=== PATIENT | female | born 1985 | race Two or more races ===

== ENCOUNTER 2018-02-28 11:23 | Emergency (ER) | payer OTHER ==
[2018-02-28 11:44] VITALS: BP 109/49; PULSE 75; TEMP 98.3; BMI 21.7
[2018-02-28] MEDS ORDERED: SODIUM CHLORIDE 1,000 ML IV STA (12:40)
[2018-02-28] MEDS ORDERED: ACETAMINOPHEN 1000 MG/100 ML VIAL (NON FORMULARY) IVPB ONE (12:40)
[2018-02-28] MEDS ORDERED: METOCLOPRAMIDE HCL INJECTION 10 MG/2 ML VIAL IVPUSH ONE (12:40)
[2018-02-28] MEDS ORDERED: FAMOTIDINE 20 MG/50 ML IVPB 20 MG/50 ML MG IVPB ONE ×2 (12:40→13:02)
--- NOTE | 2018-02-28 12:49 | PDOC ---
History of Present Illness - General History Source: Patient Exam Limitations: No Limitations <Jorge Luis Beard - Last Filed: 02/28/18 14:59> - History of Present Illness Initial Comments: The patient is a 32 year old female (, currently ~10 weeks ), with no significant PMH, who presents to the emergency department today complaining of nausea and vomiting for 2 days. She states she has thrown up over 30 times. Patient reports associated intermittent superpubic discomfort with vomiting. Patient reports her LMP was over 2.5 months ago. She denies history of hyperemesis gravidarum. The patient denies chest pain, shortness of breath, headache and dizziness. Denies fever, chills, diarrhea and constipation. Denies vaginal bleeding, dysuria, frequency, urgency and hematuria. Allergies: NKA Past surgical history: None reported Social history: No reported 02/28/18 12:55 <Vee Turner - Last Filed: 02/28/18 15:14> - General Chief Complaint: Pain, Acute Stated Complaint: ABD PAIN Time Seen by Provider: 02/28/18 11:56 Past History - Past Medical History COPD: No - Reproductive History Is Patient Now?: Yes - Immunization History Immunization Up to Date: No - Suicide/Smoking/Psychosocial Hx Smoking History: Never smoked Hx Alcohol Use: No Drug/Substance Use Hx: No <Jorge Luis Beard - Last Filed: 02/28/18 14:59> <Vee Turner - Last Filed: 02/28/18 15:14> - Past Medical History Allergies/Adverse Reactions: Allergies Allergy/AdvReac Type Severity Reaction Status Date / Time No Known Allergies Allergy Verified 02/28/18 11:40 Home Medications: Ambulatory Orders Acetaminophen [Tylenol] 650 mg PO Q4H PRN #20 tablet 02/28/18 Famotidine [Pepcid] 20 mg PO BID #20 tablet 02/28/18 Ferrous Sulfate [Feosol] 325 mg PO 02/28/18 Metoclopramide HCl [Reglan] 10 mg PO Q6H PRN #20 tablet 02/28/18 Prenat 115/Iron Fum/Folic/Dss [ 19 Tablet] 1 each PO 02/28/18 Review of Systems - Review of Systems Comments:: GENERAL/CONSTITUTIONAL: No fever or chills. No weakness. HEAD, EYES, EARS, NOSE AND THROAT: No change in vision. No ear pain or discharge. No sore throat. CARDIOVASCULAR: No chest pain or shortness of breath. RESPIRATORY: No cough, wheezing, or hemoptysis. GASTROINTESTINAL: +Nausea. +Vomiting. No diarrhea or constipation. GENITOURINARY: No dysuria, frequency, or change in urination. MUSCULOSKELETAL: +Superpubic discomfort. No joint or muscle swelling. No neck or back pain. SKIN: No rash NEUROLOGIC: No headache, vertigo, loss of consciousness, or change in strength/ sensation. ENDOCRINE: No increased thirst. No abnormal weight change. HEMATOLOGIC/LYMPHATIC: No anemia, easy bleeding, or history of blood clots. ALLERGIC/IMMUNOLOGIC: No hives or skin allergy. 02/28/18 12:56 <Vee Turner - Last Filed: 02/28/18 15:14> *Physical Exam - Vital Signs Last Vital Signs Temp Pulse Resp BP Pulse Ox 98.3 F 75 16 109/49 L 98 02/28/18 11:40 02/28/18 11:40 02/28/18 11:40 02/28/18 11:40 02/28/18 11:40 <Jorge Luis Beard - Last Filed: 02/28/18 14:59> - Vital Signs Last Vital Signs Temp Pulse Resp BP Pulse Ox 98.3 F 75 16 109/49 L 98 02/28/18 11:40 02/28/18 11:40 02/28/18 11:40 02/28/18 11:40 02/28/18 11:40 - Physical Exam Comments: GENERAL: Awake, alert, and fully oriented, in no acute distress HEAD: No signs of trauma EYES: PERRLA, EOMI, sclera anicteric, conjunctiva clear ENT: Auricles normal inspection, hearing grossly normal, nares patent, oropharynx clear without exudates. Moist mucosa NECK: Normal ROM, supple, no lymphadenopathy, JVD, or masses LUNGS: Breath sounds equal, clear to auscultation bilaterally. No wheezes, and no crackles HEART: Regular rate and rhythm, normal S1 and S2, no murmurs, rubs or gallops ABDOMEN: +Mild suprapubic tenderness to palpation. Soft, normoactive bowel sounds. No guarding, no rebound. No masses GENITOURINARY: No lesions, no drainage, no bleeding. No CMT, no adnexal tenderness. Cervical OS closed, no blood. EXTREMITIES: Normal range of motion, no edema. No clubbing or cyanosis. No cords, erythema, or tenderness NEUROLOGICAL: Cranial nerves II through XII grossly intact. Normal speech, normal gait SKIN: Warm, Dry, normal turgor, no rashes or lesions noted. 02/28/18 12:57 <Vee Turner - Last Filed: 02/28/18 15:14> Moderate Sedation - Procedure Monitoring Vital Signs: Procedure Monitoring Vital Signs Temperature 98.3 F 02/28/18 11:40 Pulse Rate 75 02/28/18 11:40 Respiratory Rate 16 02/28/18 11:40 Blood Pressure 109/49 L 02/28/18 11:40 O2 Sat by Pulse Oximetry (%) 98 02/28/18 11:40 <Jorge Luis Beard - Last Filed: 02/28/18 14:59> - Procedure Monitoring Vital Signs: Procedure Monitoring Vital Signs Temperature 98.3 F 02/28/18 11:40 Pulse Rate 75 02/28/18 11:40 Respiratory Rate 16 02/28/18 11:40 Blood Pressure 109/49 L 02/28/18 11:40 O2 Sat by Pulse Oximetry (%) 98 02/28/18 11:40 <Vee Turner - Last Filed: 02/28/18 15:14> ED Treatment Course - LABORATORY CBC & Chemistry Diagram: 02/28/18 12:40 02/28/18 12:40 - RADIOLOGY Radiology Studies Ordered: Category Date Time Status TRANSVAGINAL US PREG [US] Stat Ultrasound 02/28/18 12:34 Ordered <Jorge Luis Beard - Last Filed: 02/28/18 14:59> - LABORATORY CBC & Chemistry Diagram: 02/28/18 12:40 02/28/18 12:40 - RADIOLOGY Radiograph Interpretation: EXAM#: TYPE/EXAM: RESULT: [id number] US/ <14WKS IMPRESSION: Single, live intrauterine of 10 weeks gestational age. Reported By: Jeffry Medina MD 02/28/18 14:53 02/28/18 15:13 <Vee Turner - Last Filed: 02/28/18 15:14> Medical Decision Making - Medical Decision Making 02/28/18 12:46 A portion of this note was documented by scribe services under my direction. I have reviewed the details of the note, within reason, and agree with the documentation with the following case summary and management plan written by me. Patient treated in the ED. Nursing notes are reviewed and incorporated into the medical decision-making. Vital signs reviewed. Peripheral IV access obtained by the nurse, laboratory studies are drawn and sent, reviewed and interpreted by myself. Vital Signs Temp Pulse Resp BP Pulse Ox 98.3 F 75 16 109/49 L 98 02/28/18 11:40 02/28/18 11:40 02/28/18 11:40 02/28/18 11:40 02/28/18 11:40 32-year-old female patient no medical history, , last menstrual period approximately mid-November, approximately 10 weeks presents with nausea and vomiting since yesterday. Reports some intermittent suprapubic discomfort with vomiting but denies dysuria or vaginal bleeding. Denies fevers or chills. Reported vomiting over 30 times. Denies prior history of hyperemesis gravidarum. I do suspect patient may have elements of hypertensive gravidarum. Patient has not had an ultrasound yet. Patient has some very minimal suprapubic tenderness to palpation and normal pelvic exam. However, we'll rule out ectopic friends. Obtain transvaginal ultrasound. Labs, urinalysis. Treat symptoms and give IV fluids and reassess. 02/28/18 14:59 CBC, BMP 02/28/18 12:40 02/28/18 12:40 CMP Sodium 136 mmol/L (136-145) 02/28/18 12:40 Potassium 3.8 mmol/L (3.5-5.1) 02/28/18 12:40 Chloride 103 mmol/L (98-107) 02/28/18 12:40 Carbon Dioxide 24 mmol/L (21-32) 02/28/18 12:40 Anion Gap 9 MMOL/L (8-16) 02/28/18 12:40 BUN 12 mg/dL (7-18) 02/28/18 12:40 Creatinine 0.5 mg/dL (0.55-1.3) L 02/28/18 12:40 Creat Clearance w eGFR > 60 (>60) 02/28/18 12:40 Random Glucose 76 mg/dL (74-106) 02/28/18 12:40 Calcium 8.9 mg/dL (8.5-10.1) 02/28/18 12:40 Total Bilirubin 0.4 mg/dL (0.2-1) 02/28/18 12:40 AST 14 U/L (15-37) L 02/28/18 12:40 ALT 17 U/L (13-61) 02/28/18 12:40 Alkaline Phosphatase 48 U/L (45-117) 02/28/18 12:40 Total Protein 7.2 g/dl (6.4-8.2) 02/28/18 12:40 Albumin 3.9 g/dl (3.4-5.0) 02/28/18 12:40 Beta HCG, Quant 650642.6 mIU/ml 02/28/18 12:40 Urine Test Results Urine Color Yellow 02/28/18 12:45 Urine Appearance Clear 02/28/18 12:45 Urine pH 6.0 (5.0-8.0) 02/28/18 12:45 Ur Specific [place] 1.023 (1.010-1.035) 02/28/18 12:45 Urine Protein Negative (NEGATIVE) 02/28/18 12:45 Urine Glucose (UA) Negative (NEGATIVE) 02/28/18 12:45 Urine Ketones 2+ (NEGATIVE) H 02/28/18 12:45 Urine Blood Negative (NEGATIVE) 02/28/18 12:45 Urine Nitrite Negative (NEGATIVE) 02/28/18 12:45 Urine Bilirubin Negative (<2.0 mg/dL) 02/28/18 12:45 Ur Leukocyte Esterase Negative (NEGATIVE) 02/28/18 12:45 Ultrasound shows IUP HR 171, small left ovarian cyst. Pt reports feeling significantly better. 02/28/18 14:59 Blood type O positive. Discharge diagnosis: hyperemesis gravidarum. Pt has follow up with OB tomorrow. I discussed the physical exam findings, ancillary test results and final diagnoses with the patient. I answered all of the patient's questions. The patient was satisfied with the care received and felt comfortable with the discharge plan and treatment plan. The patient will call their primary care physician within 24 hours to arrange follow-up and will return to the Emergency Department with any new, persistant or worsening symptoms. <Jorge Luis Beard - Last Filed: 02/28/18 14:59> *DC/Admit/Observation/Transfer - Discharge Dispostion Decision to Admit order: No <Jorge Luis Beard - Last Filed: 02/28/18 14:59> - Attestations Scribe Attestion: 02/28/18 12:58 Documentation prepared by TORI Rae, acting as medical insurance claims processor for Jorge Luis Beard MD. <Vee Turner - Last Filed: 02/28/18 15:14> Diagnosis at time of Disposition: Hyperemesis gravidarum - Discharge Dispostion Disposition: HOME Condition at time of disposition: Improved - Prescriptions Prescriptions: Acetaminophen [Tylenol] 650 mg PO Q4H PRN #20 tablet PRN Reason: Pain Famotidine [Pepcid] 20 mg PO BID #20 tablet Metoclopramide HCl [Reglan] 10 mg PO Q6H PRN #20 tablet PRN Reason: Nausea - Referrals Referrals: Laura Jacob MD [Primary Care Provider] - - Patient Instructions Printed Discharge Instructions: DI for Hyperemesis Gravidarum Additional Instructions: The ultrasound of your fetus is reassuring. Please take the medications as prescribed as needed for symptoms control. Drink plenty of fluid and rest. Follow up with your doctor.
[2018-02-28 12:53] LABS: BASO % 0.6 % (0-2.0); EOS % 0.2 % (0-4.5); HEMATOCRIT 40.8 % (32.4-45.2); HEMOGLOBIN 14.6 GM/dL (10.7-15.3); MCH 34.6 pg (25.7-33.7); MCHC 35.8 g/dl (32.0-36.0); MEAN CELL VOLUME 96.7 fl (80-96); MEAN PLT VOLUME 7.5 fl (7.5-11.1); MONO % 6.2 % (3.8-10.2); PLATELET COUNT 323 K/MM3 (134-434); RBC 4.22 M/mm3 (3.60-5.2); RDW 12.5 % (11.6-15.6); WHITE BLOOD COUNT 10.7 K/mm3 (4.0-10.0)
[2018-02-28] MEDS ORDERED: METOCLOPRAMIDE HCL INJECTION 10 MG/2 ML VIAL ONE (13:01)
[2018-02-28] MEDS ORDERED: ACETAMINOPHEN INJECTION 100 ML IVPB ONE (13:02)
[2018-02-28 13:41] LABS: ALBUMIN 3.9 g/dl (3.4-5.0); ALK PHOS 48 U/L (45-117); ANION GAP 9 MMOL/L (8-16); BILIRUBIN,TOTAL 0.4 mg/dL (0.2-1); BLOOD UREA NITROGEN 12 mg/dL (7-18); CALCIUM 8.9 mg/dL (8.5-10.1); CHLORIDE 103 mmol/L (98-107); CO2 24 mmol/L (21-32); CREATININE 0.5 mg/dL (0.55-1.3); GLUCOSE,RANDOM 76 mg/dL (74-106); POTASSIUM 3.8 mmol/L (3.5-5.1); SGOT/AST 14 U/L (15-37); SGPT/ALT 17 U/L (13-61); SODIUM 136 mmol/L (136-145); TOT PROT 7.2 g/dl (6.4-8.2)
[2018-02-28 13:42] LABS: URINE APPEARANCE CLEAR; URINE BILIRUBIN NEGATIVE (<2.0 mg/dL); URINE COLOR YELLOW; URINE GLUCOSE (UA) NEGATIVE (NEGATIVE); URINE KETONE 2+ (NEGATIVE); URINE LEUK ESTERASE NEGATIVE (NEGATIVE); URINE NITRITE NEGATIVE (NEGATIVE); URINE PROTEIN NEGATIVE (NEGATIVE); URINE UROBILINOGEN NEGATIVE mg/dL (0.2-1.0)
== END 2018-02-28 15:12 | disposition home or self-care (01) ==
LOC: JER 11:23
PROC: 3E033NZ Introduction of Analgesics, Hypnotics, Sedatives into Peripheral Vein, Percutaneous Approach (ICD-10-PCS; principal; 2018-02-28)
PROC: 3E033GC Introduction of Other Therapeutic Substance into Peripheral Vein, Percutaneous Approach (ICD-10-PCS; 2018-02-28)
PROC: 3E0337Z Introduction of Electrolytic and Water Balance Substance into Peripheral Vein, Percutaneous Approach (ICD-10-PCS; 2018-02-28)
DX: O26.891 Other specified pregnancy related conditions, first trimester (principal); Z3A.10 10 weeks gestation of pregnancy; O21.0 Mild hyperemesis gravidarum
CPT/HCPCS: 36415; 76801-TC; 80053; 81003; 84702; 85025; 86850; 86900; 86901; 87086; 99283-25; J0131; J7030

== ENCOUNTER 2018-09-24 17:25 | Inpatient (IN) | payer OTHER ==
[2018-09-24] MEDS ORDERED: AMPICILLIN SODIUM 2 GM VIAL ONE (17:47)
[2018-09-24] MEDS ORDERED: AMPICILLIN - 2 GM in SODIUM CHLORIDE 100 ML IVPB ONE (17:50)
[2018-09-24 18:03] VITALS: BMI 24.7
[2018-09-24] MEDS ORDERED: DEXTROSE 5%-LACTATED RINGERS 1,000 ML IV SCH (18:15)
[2018-09-24 18:45] LABS: BASO % 0.5 % (0-2.0); EOS % 0.3 % (0-4.5); HEMATOCRIT 37.5 % (32.4-45.2); HEMOGLOBIN 12.9 GM/dL (10.7-15.3); LYMPH % 13.1 % (8-40); MCH 33.1 pg (25.7-33.7); MCHC 34.5 g/dl (32.0-36.0); MEAN CELL VOLUME 95.9 fl (80-96); MEAN PLT VOLUME 7.7 fl (7.5-11.1); MONO % 7.8 % (3.8-10.2); NEUT % 78.3 % (42.8-82.8); PLATELET COUNT 333 K/MM3 (134-434); RBC 3.91 M/mm3 (3.60-5.2); RDW 14.9 % (11.6-15.6); WHITE BLOOD COUNT 9.2 K/mm3 (4.0-10.0)
[2018-09-24 18:55] LABS: INR 0.88 (0.83-1.09); PROTHROMBIN TIME (PATIENT) 10.4 SEC (9.7-13.0)
[2018-09-24] MEDS ORDERED: PROMETHAZINE HCL 25 MG/1 ML VIAL IVPUSH ONE (18:55)
[2018-09-24] MEDS ORDERED: BUTORPHANOL TARTRATE 1 MG/ML VIAL IVPUSH ONE (18:55)
[2018-09-24 18:57] LABS: ACTIVATED PTT 29.5 SECONDS (25.2-36.5)
[2018-09-24] MEDS ORDERED: PROMETHAZINE HCL 25 MG/1 ML VIAL ONE (19:01)
[2018-09-24] MEDS ORDERED: BUTORPHANOL TARTRATE 1 MG/ML VIAL ONE ×2 (19:01)
--- NOTE | 2018-09-24 19:02 | HP ---
Past Medical History - Primary Care Physician PCP:: Fredrick Gandara - Admission Chief Complaint: 39 weeks, previous c/s , labor ,for History of Present Illness: 33 yo f with one previous c/s and 2 requesting VBAV , cx 6 cm 80 vx -1 mi, fhr cat 1, regular contraction History Source: Patient Limitations to Obtaining History: No Limitations - Past Medical History ...: 4 ...Para: 3 ...Term: 3 ...EDC by Nalini: 09/30/18 Heme/Onc: Yes: Anemia - Past Surgical History Past Surgical History: Yes: Hx Myomectomy: No Hx Transabdominal Cerclage: No - Smoking History Smoking history: Never smoked Have you smoked in the past 12 months: No - Alcohol/Substance Use Hx Alcohol Use: No - Social History Usual Living Arrangement: Yes: With Spouse History of Recent Travel: No Home Medications - Allergies Allergies/Adverse Reactions: Allergies Allergy/AdvReac Type Severity Reaction Status Date / Time No Known Allergies Allergy Verified 09/24/18 18:08 - Home Medications Home Medications: Ambulatory Orders Acetaminophen [Tylenol] 650 mg PO Q4H PRN #20 tablet 02/28/18 Famotidine [Pepcid] 20 mg PO BID #20 tablet 02/28/18 Ferrous Sulfate [Feosol] 325 mg PO 02/28/18 Metoclopramide HCl [Reglan] 10 mg PO Q6H PRN #20 tablet 02/28/18 Prenat 115/Iron Fum/Folic/Dss [ 19 Tablet] 1 each PO DAILY 02/28/18 Review of Systems - Review of Systems Constitutional: reports: No Symptoms Eyes: reports: No Symptoms HENT: reports: No Symptoms Neck: reports: No Symptoms Cardiovascular: reports: No Symptoms Respiratory: reports: No Symptoms Gastrointestinal: reports: No Symptoms Genitourinary: reports: No Symptoms Breasts: reports: No Symptoms Reported Musculoskeletal: reports: No Symptoms Integumentary: reports: No Symptoms Neurological: reports: No Symptoms Endocrine: reports: No Symptoms Hematology/Lymphatic: reports: No Symptoms Psychiatric: reports: No Symptoms Physical Exam - Maternity Vital Signs: Vital Signs Temperature 98.5 F 09/24/18 17:56 Pulse Rate 85 09/24/18 17:56 Respiratory Rate 18 09/24/18 17:56 Blood Pressure 132/81 09/24/18 17:56 O2 Sat by Pulse Oximetry (%) Constitutional: Yes: Well Nourished, No Distress, Calm Eyes: Yes: WNL, Conjunctiva Clear, EOM Intact HENT: Yes: WNL, Atraumatic, Normocephalic Neck: Yes: WNL, Supple, Trachea Midline Cardiovascular: Yes: WNL, Regular Rate and Rhythm Breast(s): Yes: WNL - Abdominal Exam/OB Fundal Height: 38 Number of Fetuses: Single Presentation: Vertex Contractions: Yes Regularity: Regular Monitor Mode: External Heart Rate Location: [facility] Category: I Accelerations: Uniform - Vaginal Exam/OB Vaginal Bleediing: No Speculum Exam: No Dilatation (cm): 6 Effacement (%): 100 Amniotic Membrane Status: Bulging Presentation: Vertex/Position Station: -1 - Physical Exam Musculoskeletal: Yes: WNL Extremities: Yes: WNL Edema: Yes Edema: LLE: Trace, RLE: Trace ...Motor Strength: WNL Psychiatric: Yes: WNL Hemorrhage Risk Assessment - Risk Factors Medium Risk Factors: Yes: Prior , uterine surgery,or multiple laparotomies Risk Score: 1 Risk Level: Medium Risk Problem List - Problems (1) with 39 completed weeks gestation Code(s): Z3A.39 - 39 WEEKS GESTATION OF (2) Labor established Code(s): ZWO6537 - (3) Previous section complicating Code(s): O34.219 - MATERNAL CARE FOR UNSP TYPE SCAR FROM PREVIOUS DEL Assessment/Plan plan admit, fhm risks of discussed for pain management
--- NOTE | 2018-09-24 19:04 | PN ---
Progress Note (short form) - Note Progress Note: cx 6 cm 100 vx -=1 , arom, light mec stained af, fhr cat 1, regular contraction Problem List - Problems (1) with 39 completed weeks gestation Code(s): Z3A.39 - 39 WEEKS GESTATION OF (2) Labor established Code(s): QPG5249 - (3) Previous section complicating Code(s): O34.219 - MATERNAL CARE FOR UNSP TYPE SCAR FROM PREVIOUS DEL
[2018-09-24 19:05] LABS: BLOOD UREA NITROGEN 11.4 mg/dL (7-18); CALCIUM 8.7 mg/dL (8.5-10.1); CREATININE 0.5 mg/dL (0.55-1.3); POTASSIUM 3.9 mmol/L (3.5-5.1)
[2018-09-24 20:18] LABS: COCAINE, UR NEGATIVE ng/ml (CUTOFF=300); METHADONE, UR NEGATIVE ng/ml (CUTOFF=300); OPIATES, URI NEGATIVE ng/ml (CUTOFF=300); PHENCYCLIDINE,URINE NEGATIVE ng/ml (CUTOFF=25); URINE AMPHETAMINES NEGATIVE ng/ml (CUTOFF=500); URINE BARBITURATES NEGATIVE ng/ml (CUTOFF=200); URINE BENZODIAZEPINES NEGATIVE ng/ml (CUTOFF=200)
[2018-09-24] MEDS ORDERED: OXYTOCIN 20 UNITS in 0.9% NS 20 UNIT/1,000 ML INFUS.BAG IV ONE (20:46)
--- NOTE | 2018-09-24 21:01 | PN ---
Progress Note (short form) - Note Progress Note: 9cm, 100 vx 0 mr, fhr cat 1, irregular contraction Problem List - Problems (1) with 39 completed weeks gestation Code(s): Z3A.39 - 39 WEEKS GESTATION OF (2) Labor established Code(s): QPC1239 - (3) Previous section complicating Code(s): O34.219 - MATERNAL CARE FOR UNSP TYPE SCAR FROM PREVIOUS DEL
[2018-09-24] MEDS ORDERED: OXYTOCIN 30 UNITS in 0.9% NS 30 UNIT/500 ML INFUS.BAG IVPB ONE (21:28)
[2018-09-24] MEDS ORDERED: BISACODYL 10 MG SUPP.RECT RC PRN (22:46)
[2018-09-24] MEDS ORDERED: WITCH HAZEL 50% (TUCKS) 40 PAD/JAR PAD TP PRN (22:46)
[2018-09-24] MEDS ORDERED: BENZOCAINE 28 GM HEMORRHOIDAL OINTMENT TP PRN (22:46)
[2018-09-24] MEDS ORDERED: BENZOCAINE 20% 57 GM BOTTLE TP PRN (22:46)
[2018-09-24] MEDS ORDERED: METHYLERGONOVINE MALEATE 0.2 MG/1 ML AMP IM PRN (22:46)
[2018-09-24] MEDS ORDERED: OXYTOCIN 20 UNITS in 0.9% NS 20 UNIT/1,000 ML INFUS.BAG IV SCH (23:00)
[2018-09-24] MEDS ORDERED: D5W-LR W/ 20 UNITS OXYTOCIN 20 UNIT/1,000 ML INFUS.BAG IV SCH (23:00)
--- NOTE | 2018-09-24 23:14 | PN ---
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 - 1 Minute Total Score: 9 5 Minutes Total Score: 9 - [place] Feeding Plan Initial Plan: Elected not to breastfeed exclusively throughout hospitalization
[2018-09-25] MEDS ORDERED: IBUPROFEN 600 MG TABLET (FP) PO ONE (00:08)
[2018-09-25] MEDS ORDERED: ACETAMINOPHEN 325 MG TABLET (FP) ONE (00:08)
[2018-09-25] MEDS: ACETAMINOPHEN 325 MG TABLET (FP) PO PRN ×3 (00:10→18:35)
[2018-09-25] MEDS: IBUPROFEN 600 MG TABLET (FP) PO PRN ×3 (00:10→18:36)
[2018-09-25] MEDS: AMPICILLIN - 1 GM in SODIUM CHLORIDE 100 ML IVPB SCH ×2 (04:51→05:54)
--- NOTE | 2018-09-25 06:31 | PN ---
Post Progress Note - Subjective Subjective: doing well, no issues Type of Delivery: Vital Signs: Vital Signs Temperature 97.8 F 09/25/18 05:43 Pulse Rate 62 09/25/18 05:43 Respiratory Rate 20 09/25/18 05:43 Blood Pressure 124/72 09/25/18 05:43 O2 Sat by Pulse Oximetry (%) 100 09/25/18 00:00 Breast Exam: Yes: Soft Uterus: Yes: Fundus Firm Abdomen/GI: Yes: Abdomen soft Lochia: Yes: Rubra Lochia, amount: Small Extremities: Yes: Calves non-tender Perineum: Yes: Intact Activity: Ambulating - Labs Labs: CBC WBC 9.2 K/mm3 (4.0-10.0) 09/24/18 18:20 RBC 3.91 M/mm3 (3.60-5.2) 09/24/18 18:20 Hgb 12.9 GM/dL (10.7-15.3) 09/24/18 18:20 Hct 37.5 % (32.4-45.2) 09/24/18 18:20 MCV 95.9 fl (80-96) 09/24/18 18:20 MCH 33.1 pg (25.7-33.7) 09/24/18 18:20 MCHC 34.5 g/dl (32.0-36.0) 09/24/18 18:20 RDW 14.9 % (11.6-15.6) D 09/24/18 18:20 Plt Count 333 K/MM3 (134-434) 09/24/18 18:20 MPV 7.7 fl (7.5-11.1) 09/24/18 18:20 Absolute Neuts (auto) 7.2 K/mm3 (1.5-8.0) 09/24/18 18:20 Neutrophils % 78.3 % (42.8-82.8) 09/24/18 18:20 Lymphocytes % 13.1 % (8-40) 09/24/18 18:20 Monocytes % 7.8 % (3.8-10.2) 09/24/18 18:20 Eosinophils % 0.3 % (0-4.5) 09/24/18 18:20 Basophils % 0.5 % (0-2.0) 09/24/18 18:20 Nucleated RBC % 0 % (0-0) 09/24/18 18:20 Assessment/Plan normal pp course continue care
[2018-09-25 08:27] LABS: BASO % 0.3 % (0-2.0); EOS % 0.1 % (0-4.5); HEMOGLOBIN 13.4 GM/dL (10.7-15.3); LYMPH % 10.9 % (8-40); MCH 32.7 pg (25.7-33.7); MCHC 34.3 g/dl (32.0-36.0); MEAN CELL VOLUME 95.4 fl (80-96); MEAN PLT VOLUME 7.8 fl (7.5-11.1); MONO % 7.4 % (3.8-10.2); NEUT % 81.3 % (42.8-82.8); PLATELET COUNT 328 K/MM3 (134-434); RBC 4.09 M/mm3 (3.60-5.2); RDW 15.1 % (11.6-15.6); WHITE BLOOD COUNT 13.9 K/mm3 (4.0-10.0)
[2018-09-25] MEDS: FERROUS SO4 325 MG TABLET (FP) PO SCH ×2 (09:49→17:33)
[2018-09-25] MEDS: PRENATAL VITAMINS W/ FOLIC ACID TABLET (FP) PO SCH (09:49)
[2018-09-25] MEDS ORDERED: SENNOSIDES/DOCUSATE COMBO (SENNA PLUS) TABLET (UD) PO PRN (22:00)
[2018-09-26] MEDS: AMPICILLIN - 1 GM in SODIUM CHLORIDE 100 ML IVPB SCH (07:07)
[2018-09-26] MEDS: PRENATAL VITAMINS W/ FOLIC ACID TABLET (FP) PO SCH (09:29)
[2018-09-26] MEDS: FERROUS SO4 325 MG TABLET (FP) PO SCH (09:29)
[2018-09-26 10:19] VITALS: BP 122/73; PULSE 84; TEMP 98.3
--- NOTE | 2018-09-26 12:19 | PN ---
Post Progress Note - Subjective Subjective: no complains Post Day: 2 Type of Delivery: Vital Signs: Vital Signs Temperature 98.3 F 09/26/18 09:00 Pulse Rate 84 09/26/18 09:00 Respiratory Rate 20 09/26/18 09:00 Blood Pressure 122/73 09/26/18 09:00 O2 Sat by Pulse Oximetry (%) 100 09/25/18 00:00 Breast Exam: Yes: Soft, Other (bottle feeding) Uterus: Yes: Fundus Firm, Fundus below umbilicus, Non-tender Lochia: Yes: Rubra Lochia, amount: Small Extremities: Yes: Calves non-tender Perineum: Yes: Intact Activity: Ambulating - Labs Labs: CBC WBC 13.9 K/mm3 (4.0-10.0) H 09/25/18 07:43 RBC 4.09 M/mm3 (3.60-5.2) 09/25/18 07:43 Hgb 13.4 GM/dL (10.7-15.3) 09/25/18 07:43 Hct 39.0 % (32.4-45.2) 09/25/18 07:43 MCV 95.4 fl (80-96) 09/25/18 07:43 MCH 32.7 pg (25.7-33.7) 09/25/18 07:43 MCHC 34.3 g/dl (32.0-36.0) 09/25/18 07:43 RDW 15.1 % (11.6-15.6) 09/25/18 07:43 Plt Count 328 K/MM3 (134-434) 09/25/18 07:43 MPV 7.8 fl (7.5-11.1) 09/25/18 07:43 Absolute Neuts (auto) 11.3 K/mm3 (1.5-8.0) H 09/25/18 07:43 Neutrophils % 81.3 % (42.8-82.8) 09/25/18 07:43 Lymphocytes % 10.9 % (8-40) 09/25/18 07:43 Monocytes % 7.4 % (3.8-10.2) 09/25/18 07:43 Eosinophils % 0.1 % (0-4.5) 09/25/18 07:43 Basophils % 0.3 % (0-2.0) 09/25/18 07:43 Nucleated RBC % 0 % (0-0) 09/25/18 07:43 Problem List - Problems (1) Encounter for care and examination after delivery Code(s): Z39.2 - ENCOUNTER FOR ROUTINE FOLLOW-UP Assessment/Plan stable plan discharge today
--- NOTE | 2018-10-01 13:43 | PN ---
Progress Note (short form) - Note Progress Note: patient has [id number] marijuana urine toxicology Problem List - Problems (1) with 39 completed weeks gestation Code(s): Z3A.39 - 39 WEEKS GESTATION OF (2) Labor established Code(s): MFO0675 - (3) Previous section complicating Code(s): O34.219 - MATERNAL CARE FOR UNSP TYPE SCAR FROM PREVIOUS DEL
== END 2018-09-26 13:05 | disposition home or self-care (01) | DRG 560 ==
LOC: JLDR 17:25 → J3W 09-25 01:42
PROVIDERS: ADMIT Obstetrics & Gynecology; ATTEND Obstetrics & Gynecology
PROC: 10E0XZZ Delivery of Products of Conception, External Approach (ICD-10-PCS; principal; 2018-09-24)
DX: O34.211 Maternal care for low transverse scar from previous cesarean delivery (principal); Z3A.39 39 weeks gestation of pregnancy; Z37.0 Single live birth; O99.324 Drug use complicating childbirth; F12.90 Cannabis use, unspecified, uncomplicated
CPT/HCPCS: 36415; 36600; 59409; 80048; 80307; 82803; 85025; 85610; 85730; 86593; 86850; 86900; 86901

== ENCOUNTER 2019-02-06 09:19 | Emergency (ER) | payer OTHER ==
[2019-02-06 09:29] VITALS: BMI 26.5
[2019-02-06] MEDS ORDERED: ACETAMINOPHEN 325 MG TABLET (FP) PO ONE (09:33)
[2019-02-06] MEDS ORDERED: SODIUM CHLORIDE 1,000 ML IV STA (09:33)
[2019-02-06] MEDS ORDERED: ACETAMINOPHEN 325 MG TABLET (FP) ONE (09:59)
[2019-02-06 10:06] LABS: BASO % 0.4 % (0-2.0); EOS % 1.6 % (0-4.5); HEMATOCRIT 39.7 % (32.4-45.2); HEMOGLOBIN 13.6 GM/dL (10.7-15.3); LYMPH % 16.6 % (8-40); MCH 33.2 pg (25.7-33.7); MCHC 34.3 g/dl (32.0-36.0); MEAN CELL VOLUME 96.7 fl (80-96); MEAN PLT VOLUME 7.7 fl (7.5-11.1); MONO % 9.3 % (3.8-10.2); NEUT % 72.1 % (42.8-82.8); PLATELET COUNT 298 K/MM3 (134-434); RBC 4.11 M/mm3 (3.60-5.2); RDW 12.2 % (11.6-15.6); WHITE BLOOD COUNT 10.7 K/mm3 (4.0-10.0)
[2019-02-06] MEDS ORDERED: metroNIDAZOLE 500 MG TABLET PO ONE (10:11)
--- NOTE | 2019-02-06 10:19 | PDOC ---
History of Present Illness - General Chief Complaint: Vaginal Bleeding Stated Complaint: VAGINAL BLEEDING 11WKS Time Seen by Provider: 02/06/19 09:32 History Source: Patient Exam Limitations: No Limitations - History of Present Illness Initial Comments: 02/06/19 10:13 [facility] 33-year-old female G5, P4 presenting with 3 days of vaginal spotting, last night noted larger chunks and clots when she was wiping. Associated with lower pelvic pain worse on the left side. Patient has been told she has had left- sided ovarian cyst with her in the past but no complications. Associated with minor cramping in the lower abdomen yesterday, since resolved. She was also bending forward and strained her lower back. follows with Dr Crowley for OB, last visit was last week, no first trimester ultrasound performed yet. c/o mild cough and congestion x 2-3 days, improving also c/o vaginal odor, but no itching or vaginal discharge or purulence no prior history of PID/STD or ectopic. Denies fever, chills, chest pain, SOB, palpitation, dizziness, weakness, N, V, D , abdominal pain, bladder and bowel problems, focal weakness/paresthesias, leg swelling/pain, rash. No sick contacts or travel. No new changes in medications. No suspicious food intake Allergies: None Past Medical History: none PSH: C section Social history: Lives with family. No tobacco, ETOH or drug use. Meds: as documented in EMR - prenatals Family history: noncontributory Review of systems Constitutional: no fevers or chills. No weakness HEENT: +chronic headache, no dizziness. No visual/hearing disturbances. CVS: no cp or syncope. Resp: no sob. +cough and congestion, mild Gastrointestinal: no nausea, vomiting, diarrhea. +pelvic pain/abdominal cramping Genitourinary: no urinary sx, hematuria. no dysuria, urgency or frequency. MUSCULOSKELETAL: No joint pain and swelling. No neck or back pain. SKIN: no redness or skin changes, no discharge, no rash. No wounds. Hematologic: no easy bruising/bleeding. NEUROLOGIC: No dizziness, LOC or altered mental status. No weakness, numbness or tingling. Psych: no anxiety or depression Allergic/Immunologic: no allergies All other systems reviewed and negative, or as documented in HPI. Physical exam General: Well appearing, awake and alert, NAD. HEENT: NCAT, PERRL, EOMI, clear conjunctiva, anicteric, moist mucus membranes, clear oropharynx, no oral lesions.. Neck: neck supple, FROM Resp: CTAB, normal and even respirations, no respiratory distress CVS: RRR, no murmurs, 2+ peripheral pulses throughout, no peripheral edema Abdomen: soft, NTND, no rebound or guarding. lower abdominal horizontal C section scar, nontender. : +left lower pelvic TTP, normal external genitalia, no lesions, clear vaginal vault, clear discharge, no bleeding, no CMT, +left adnexal tenderness. Smooth and pink cervix, closed. chaperoned in presence of Ladonna RN Back: nontender, normal inspection and ROM, no CVAT. MSK: no edema, DURHAM x4, ROM intact. No clubbing or cyanosis. normal bulk and tone. Extremities: no calf tenderness Neuro: alert, oriented appropriately; no focal neurologic deficits Psych: Calm and cooperative Skin: warm and well perfused, cap refill <2 sec, normal color, no rash or skin discoloration. 02/06/19 10:19 02/06/19 10:52 02/06/19 11:50 02/06/19 13:09 Past History - Past Medical History Allergies/Adverse Reactions: Allergies Allergy/AdvReac Type Severity Reaction Status Date / Time No Known Allergies Allergy Verified 02/06/19 09:25 Home Medications: Ambulatory Orders NK [No Known Home Medication] 02/06/19 Asthma: No Cancer: No Cardiac Disorders: No COPD: No Diabetes: No HTN: No Seizures: No Thyroid Disease: No - Immunization History Immunization Up to Date: No - Psycho Social/Smoking Cessation Hx Smoking History: Never smoked Have you smoked in the past 12 months: No Hx Alcohol Use: No Drug/Substance Use Hx: No Hx Substance Use Treatment: No *Physical Exam - Vital Signs Last Vital Signs Temp Pulse Resp BP Pulse Ox 98.4 F 88 16 126/76 100 02/06/19 09:28 02/06/19 09:28 02/06/19 09:28 02/06/19 09:28 02/06/19 09:28 ED Treatment Course - LABORATORY CBC & Chemistry Diagram: 02/06/19 10:00 02/06/19 10:00 - ADDITIONAL ORDERS Additional order review: 02/06/19 10:00 RBC 4.11 MCV 96.7 H MCHC 34.3 RDW 12.2 D MPV 7.7 Neutrophils % 72.1 Lymphocytes % 16.6 D Monocytes % 9.3 Eosinophils % 1.6 D Basophils % 0.4 - RADIOLOGY Radiology Studies Ordered: Category Date Time Status TRANSVAGINAL ULTRASOUND US [US] Stat Ultrasound 02/06/19 10:12 Ordered - Medications Given in the ED: ED Medications Discontinued Medications Generic Name Dose Route Start Last Admin Trade Name Ulices PRN Reason Stop Dose Admin Acetaminophen 650 mg 02/06/19 09:33 02/06/19 10:11 Tylenol - PO 02/06/19 09:34 650 mg ONCE ONE Administration Medical Decision Making - Medical Decision Making 02/06/19 10:19 Vital Signs Temp Pulse Resp BP Pulse Ox 98.4 F 88 16 126/76 100 02/06/19 09:28 02/06/19 09:28 02/06/19 09:28 02/06/19 09:28 02/06/19 09:28 DDx female VB: ectopic , miscarriage, demise, subchorionic hematoma, retained POC, normal first trimester bleeding, UTI in in . Fibroid uterus, vaginitis, infection, electrolyte/metabolic derangements, anemia. Considered but clinically doubt based on HPI and PE: MDM: Rh positive, no rhogam indicated VS wnl, normotensive, no tachy or hypoxia/respiratory distress. abdomen benign on reeval and no peritoneal findings, no VB here, controlled Beta hcg appropriate. >69266 TAB pelvic with live IUP seen, 170 bpm, CRL dated at 10 weeks. no free fluid. TVUS to check for ovarian pathology, cyst vs torsion; There is a small simple corpus luteal cyst measuring 9 x 7 mm, right ovary also with a small simple cyst versus a follicle. Bilateral flow is seen, no evidence of torsion. Single IUP is also confirmed via transvaginal ultrasound Urinalysis is negative preliminary for infection, follow-up on cultures. Laboratory results are normal, CBC is also within normal limits. STD testing was sent down as there was no availability of endocervical swabs so we will pursue the urine testing. Empirically treat for bacterial vaginosis given her vaginal discharge and odor f/u urine testing for GC/chlamydia/trich Dispo: OB followup with Dr Razman, bleeding precautions; return to ED if persistent and heavy vaginal bleeding, persistent pelvic pain not relieved by your prescribed medications, dizziness, shortness of breath, new and persistent fevers, other foul smelling discolored vaginal discharge, or for any other concerns. 02/06/19 11:50 02/06/19 13:08 Discharge - Discharge Information Problems reviewed: Yes Clinical Impression/Diagnosis: Vaginal bleeding during Condition: Improved Disposition: HOME - Admission No - Follow up/Referral Referrals: Fredrick Gandara MD [Staff Physician] - - Patient Discharge Instructions Patient Printed Discharge Instructions: DI for Vaginal Bleeding During Additional Instructions: 1) Please follow-up with your primary care doctor in the next 1-2 days. Please call tomorrow for for any urgent issues. follow up with your investment analyst for clinical recheck, Dr Crowley 2) You were given a copy of the tests performed today. Please bring the results with you and review them with your primary care doctor. Your laboratory / imaging results were normal, your baby was seen on ultrasound with a heart beat of 170 bpm and estimated gestation of 10 weeks [place] [id number], small ovarian cysts noted, but otherwise normal ultrasound follow up on your urine testing/cultures. 3) If you have any worsening of symptoms or any other concerns please return to the ED immediately. Return if worsening symptoms including fevers, headache, vomiting, visual or hearing disturbances, abdominal pain, worsening vaginal bleeding. chest pain, shortness of breath, syncope, dehydration, inability to take things by mouth/vomiting, altered mental status, or worsening concerning symptoms. 4) Please continue taking your home medications as directed. tylenol is okay for pain as needed, every 6 hours.. Stay well hydrated and rest adequately. pelvic rest, no intercourse or activities that could cause the bleeding until cleared by your obstretician Make an appointment. If you cannot follow-up with your investment analyst please return to the ED - Post Discharge Activity Work/Back to School Note: Back to Work
[2019-02-06 10:33] LABS: PH,URINE 5.5 (5.0-8.0); URINE APPEARANCE CLEAR; URINE BILIRUBIN NEGATIVE (NEGATIVE); URINE COLOR YELLOW; URINE GLUCOSE (UA) NEGATIVE (NEGATIVE); URINE KETONE NEGATIVE (NEGATIVE); URINE LEUK ESTERASE NEGATIVE (NEGATIVE); URINE NITRITE NEGATIVE (NEGATIVE); URINE PROTEIN NEGATIVE (NEGATIVE); URINE UROBILINOGEN 0.2 mg/dL (0.2-1.0)
[2019-02-06 10:40] LABS: ALBUMIN 3.2 g/dl (3.4-5.0); BILIRUBIN,TOTAL 0.2 mg/dL (0.2-1); BLOOD UREA NITROGEN 8.3 mg/dL (7-18); CALCIUM 8.6 mg/dL (8.5-10.1); CREATININE 0.4 mg/dL (0.55-1.3); POTASSIUM 4.1 mmol/L (3.5-5.1); TOT PROT 6.5 g/dl (6.4-8.2)
[2019-02-06 12:15] VITALS: BP 113/63; PULSE 76; TEMP 97.6
== END 2019-02-06 12:16 | disposition home or self-care (01) ==
LOC: JER 09:19
PROC: 3E0337Z Introduction of Electrolytic and Water Balance Substance into Peripheral Vein, Percutaneous Approach (ICD-10-PCS; principal; 2019-02-06)
DX: O26.891 Other specified pregnancy related conditions, first trimester (principal); Z3A.11 11 weeks gestation of pregnancy; N93.9 Abnormal uterine and vaginal bleeding, unspecified
CPT/HCPCS: 36415; 76815; 76830-TC; 80053; 81003; 84702; 85025; 86850; 86900; 86901; 87086; 87491; 87591; 87661; 99283-25; J7030

== ENCOUNTER 2019-08-18 21:20 | Inpatient (IN) | payer OTHER ==
[2019-08-18] MEDS ORDERED: ELECTROLYTE-148 SOLN 1,000 ML IV SCH (22:15)
--- NOTE | 2019-08-18 22:22 | HP ---
Past Medical History - Primary Care Physician PCP:: Arley Suarez - Admission Chief Complaint: labor pain History Source: Patient Limitations to Obtaining History: No Limitations - Past Medical History PLUMBERS AND TOP HELPERS: No: Alzheimer's, CVA, Dementia, Migraine, Multiple Sclerosis, Peripheral Neuropathy, Parkinson's, Seizure, Syncope, TIA, Vertigo, Other Cardiovascular: No: AFIB, Aneurysm, Aortic Insufficiency, Aortic Stenosis, CAD, CHF, Deep Vein Thrombosis, HTN, Hyperlipdemia, WI, Mitral Insufficiency, Mitral Stenosis, Murmur, Pulmonary Hypertension, Other Pulmonary: No: Asthma, Bronchitis, Cancer, COPD, O2 Dependent, Pneumonia, Previously Intubated, Pulmonary Embolus, Pulmonary Fibrosis, Sleep Apnea, Other Gastrointestinal: No: Ascites, Cancer, Constipation, Crohn's Disease, Diverticulitis, Diverticulosis, Esophageal Varices, Gastritis, GERD, GI Bleed, Hemorrhoids, Hiatal Hernia, Inflamatory Bowel Disease, Irritable Bowel Disease, Pancreatitis, Peptic Ulcer Disease, Ulcerative Colitis, Other Hepatobiliary: No: Cirrhosis, Cholelithiasis, Cholecystitis, Choledocholithiasis, Hepatitis A, Hepatitis B, Hepatitis C, Other Renal/: No: Renal Failure, Renal Inusuff, BPH, Cancer, Hematuria, Hemodialysis, Neurogenic Bladder, Renal Calculi, UTI, Other Reproductive: No: Ectopic , Endometriosis, Fibroids, PID, Polycystic Ovary Syndrome, Postmenopausal, Other ...: 5 ...Para: 4 Heme/Onc: Yes: Anemia Infectious Disease: No: AIDS, C-Diff, Herpes Zoster, HIV, MRSA, STD's, Tuberculosis, VREF, Other Psych: No: Addictions, Anxiety, Bipolar, Depression, Panic, Psychosis, Schizophrenia, Other Musculoskeletal: No: Bursitis, Chronic low back pain, Hemiparesis, Hemiplegia, Osteoarthritis, Paraplegia, Other Rheumatology: No: Fibromyalgia, Gout, Lupus, Rheumatoid Arthritis, Sarcoidosis, Vasculitis, Other ENT: No: Allergic Rhinitis, Sinusitis, Other Endocrine: No: Alexandria's Disease, Elder's Disease, Diabetes Insipidus, Diabetes Mellitus, Hyperparathyroidism, Hyperthyroidism, Hypothyroidism, Osteopenia, SIADH, Other Dermatology: No: Basal Cell, Cellulitis, Eczema, Melanoma, Psoriasis, Squamous Cell, Other - Past Surgical History Past Surgical History: Yes: Hx Myomectomy: No Hx Transabdominal Cerclage: No - Smoking History Smoking history: Never smoked Have you smoked in the past 12 months: No - Alcohol/Substance Use Hx Alcohol Use: No - Social History History of Recent Travel: No Home Medications - Allergies Allergies/Adverse Reactions: Allergies Allergy/AdvReac Type Severity Reaction Status Date / Time No Known Allergies Allergy Verified 02/06/19 09:25 - Home Medications Home Medications: Ambulatory Orders Iron 1 tab PO DAILY 05/11/19 Ondansetron HCl [Zofran] 4 mg PO TID PRN #20 tablet 05/11/19 Vitamins (Sjr) - 1 tab PO DAILY 05/11/19 Family Medical History Family History: Unremarkable Review of Systems Findings/Remarks: labor pain - Review of Systems Constitutional: reports: No Symptoms Eyes: reports: No Symptoms HENT: reports: No Symptoms Neck: reports: No Symptoms Cardiovascular: reports: No Symptoms Respiratory: reports: No Symptoms Gastrointestinal: reports: No Symptoms Genitourinary: reports: No Symptoms Breasts: reports: No Symptoms Reported Musculoskeletal: reports: No Symptoms Integumentary: reports: No Symptoms Neurological: reports: No Symptoms Endocrine: reports: No Symptoms Hematology/Lymphatic: reports: No Symptoms Psychiatric: reports: No Symptoms Physical Exam - Maternity Constitutional: Yes: Well Nourished HENT: Yes: Atraumatic Neck: Yes: Supple Cardiovascular: Yes: Regular Rate and Rhythm - Abdominal Exam/OB Number of Fetuses: Single Presentation: Vertex Contractions: Yes Regularity: Regular Intensity: Strong Monitor Mode: External Heart Rate (range): 120 Category: I Accelerations: Uniform Decelerations: Early - Vaginal Exam/OB Speculum Exam: No Dilatation (cm): 8 Effacement (%): 90 Amniotic Membrane Status: Ruptured Amniotic Fluid: Yes: Clear Station: -1 - Physical Exam Musculoskeletal: Yes: WNL Extremities: Yes: WNL Edema: LLE: Trace, RLE: Trace Integumentary: Yes: WNL Deep Tendon Reflex Grade: Normal +2 ...Motor Strength: WNL Psychiatric: Yes: Alert, Oriented Imaging - Results Ultrasound: Report Reviewed Assessment/Plan 33 y/o @ 38.2wks in active labor, reassuring status, GBS negative, prior C/S x 1 and multiple successful , S/P AROM, + marijuana in 3rd trimester. -Expectant management -anticipate VD -Utox and SW PP
[2019-08-18 22:23] LABS: BASO % 0.6 % (0-2.0); EOS % 0.4 % (0-4.5); HEMATOCRIT 35.6 % (32.4-45.2); HEMOGLOBIN 11.8 GM/dL (10.7-15.3); LYMPH % 12.7 % (8-40); MCHC 33.1 g/dl (32.0-36.0); MEAN CELL VOLUME 90.7 fl (80-96); MEAN PLT VOLUME 8.3 fl (7.5-11.1); NEUT % 78.3 % (42.8-82.8); PLATELET COUNT 284 K/MM3 (134-434); RBC 3.92 M/mm3 (3.60-5.2); RDW 14.6 % (11.6-15.6); WHITE BLOOD COUNT 12.1 K/mm3 (4.0-10.0)
[2019-08-18 22:29] LABS: INR 0.93 (0.83-1.09)
[2019-08-18 22:32] LABS: ACTIVATED PTT 25.6 SECONDS (25.2-36.5)
[2019-08-18] MEDS ORDERED: OXYTOCIN 20 UNITS in 0.9% NS 20 UNIT/1,000 ML INFUS.BAG IV ONE (22:36)
[2019-08-18 22:57] LABS: BLOOD UREA NITROGEN 7.8 mg/dL (7-18); CALCIUM 8.3 mg/dL (8.5-10.1); CREATININE 0.5 mg/dL (0.55-1.3); POTASSIUM 3.6 mmol/L (3.5-5.1)
[2019-08-18] MEDS ORDERED: BENZOCAINE 28 GM HEMORRHOIDAL OINTMENT TP PRN (23:06)
[2019-08-18] MEDS ORDERED: WITCH HAZEL 50% (TUCKS) 40 PAD/JAR PAD TP PRN (23:06)
[2019-08-18] MEDS ORDERED: BISACODYL 10 MG SUPP.RECT RC PRN (23:06)
[2019-08-18] MEDS ORDERED: BENZOCAINE 20% 57 GM BOTTLE TP PRN (23:06)
[2019-08-18] MEDS ORDERED: MISOPROSTOL 100 MCG TABLET NR ONE (23:07)
[2019-08-18] MEDS ORDERED: D5W-LR W/ 20 UNITS OXYTOCIN 1,000 ML IV SCH (23:15)
--- NOTE | 2019-08-18 23:17 | PN ---
Delivery - Delivery Vaginal Delivery: V-John Type of Anesthesia: None Episiotomy/Laceration: None EBL (cc): 200 Delivery, Single - Stages of Labor Placenta: Yes: Spontaneous - Condition of Infant Beater Head/Life Advisor Present: No Gender: Male Position: Right, OA Remarks - Remarks Remarks: 's head delivered spontaneously with maternal expulsive efforts, JOHNNY. Nuchal cord noted and removed following delivery of the shoulders. Rest of the body delivered without difficulty. Cord clamped and cut and sample for blood obtained. Placenta delivered spontaneously and intact, 3 VC. Exam revealed excellent hemostasis and no laceration. EBL is 200ml and 1000 mcg misoprostol adminstered [place] prophylactically. Sponge/instrument count correct x 2 and confirmed by nurse.
[2019-08-18] MEDS ORDERED: OXYTOCIN 20 UNITS in 0.9% NS 20 UNIT/1,000 ML INFUS.BAG IV SCH (23:30)
[2019-08-18] MEDS ORDERED: MISOPROSTOL 200 MCG TABLET NR ONE (23:30)
[2019-08-18 23:58] VITALS: BMI 27.4
[2019-08-19] MEDS ORDERED: ACETAMINOPHEN 325 MG TABLET (FP) ONE (00:59)
[2019-08-19] MEDS ORDERED: IBUPROFEN 600 MG TABLET (FP) PO ONE (00:59)
[2019-08-19] MEDS: IBUPROFEN 600 MG TABLET (FP) PO PRN ×3 (01:00→14:21)
[2019-08-19] MEDS: ACETAMINOPHEN 325 MG TABLET (FP) PO PRN ×4 (01:00→14:20)
[2019-08-19] MEDS ORDERED: MISOPROSTOL 200 MCG TABLET ONE (01:23)
[2019-08-19 01:44] LABS: OPIATES, URI NEGATIVE ng/ml (CUTOFF=300); PHENCYCLIDINE,URINE NEGATIVE ng/ml (CUTOFF=25); URINE BARBITURATES NEGATIVE ng/ml (CUTOFF=200)
[2019-08-19 02:11] LABS: COCAINE, UR NEGATIVE ng/ml (CUTOFF=300); METHADONE, UR NEGATIVE ng/ml (CUTOFF=300); URINE AMPHETAMINES NEGATIVE ng/ml (CUTOFF=500); URINE BENZODIAZEPINES NEGATIVE ng/ml (CUTOFF=200)
--- NOTE | 2019-08-19 06:43 | PN ---
Post Progress Note - Subjective Subjective: Ambulating, breast feeding, tolerating PO, lochia decreased, passing flatus Post Day: 1 Type of Delivery: Vital Signs: Vital Signs Temperature 98.8 F 08/19/19 06:00 Pulse Rate 66 08/19/19 06:00 Respiratory Rate 20 08/19/19 06:00 Blood Pressure 137/72 08/19/19 06:00 O2 Sat by Pulse Oximetry (%) Breast Exam: Yes: Other Uterus: Yes: Fundus Firm Abdomen/GI: Yes: Abdomen soft Lochia, amount: Moderate Extremities: Yes: Calves non-tender Perineum: Yes: Intact Activity: Ambulating - Labs Labs: CBC WBC 12.1 K/mm3 (4.0-10.0) H 08/18/19 21:00 RBC 3.92 M/mm3 (3.60-5.2) 08/18/19 21:00 Hgb 11.8 GM/dL (10.7-15.3) 08/18/19 21:00 Hct 35.6 % (32.4-45.2) 08/18/19 21:00 MCV 90.7 fl (80-96) 08/18/19 21:00 MCH 30.0 pg (25.7-33.7) 08/18/19 21:00 MCHC 33.1 g/dl (32.0-36.0) 08/18/19 21:00 RDW 14.6 % (11.6-15.6) D 08/18/19 21:00 Plt Count 284 K/MM3 (134-434) 08/18/19 21:00 MPV 8.3 fl (7.5-11.1) 08/18/19 21:00 Absolute Neuts (auto) 9.5 K/mm3 (1.5-8.0) H 08/18/19 21:00 Neutrophils % 78.3 % (42.8-82.8) 08/18/19 21:00 Lymphocytes % 12.7 % (8-40) D 08/18/19 21:00 Monocytes % 8.0 % (3.8-10.2) 08/18/19 21:00 Eosinophils % 0.4 % (0-4.5) 08/18/19 21:00 Basophils % 0.6 % (0-2.0) 08/18/19 21:00 Nucleated RBC % 0 % (0-0) 08/18/19 21:00 Assessment/Plan PPD # 1 in stable condition, successful at midnight -F/U labs -continue PP care -F/U social work consult -D/C home tomorrow
[2019-08-19 08:24] LABS: BASO % 0.4 % (0-2.0); EOS % 0.1 % (0-4.5); HEMATOCRIT 36.4 % (32.4-45.2); HEMOGLOBIN 12.2 GM/dL (10.7-15.3); LYMPH % 10.6 % (8-40); MCH 30.6 pg (25.7-33.7); MCHC 33.5 g/dl (32.0-36.0); MEAN CELL VOLUME 91.4 fl (80-96); MEAN PLT VOLUME 8.4 fl (7.5-11.1); MONO % 6.5 % (3.8-10.2); NEUT % 82.4 % (42.8-82.8); PLATELET COUNT 251 K/MM3 (134-434); RBC 3.98 M/mm3 (3.60-5.2); RDW 14.5 % (11.6-15.6); WHITE BLOOD COUNT 14.2 K/mm3 (4.0-10.0)
[2019-08-19] MEDS ORDERED: SENNOSIDES/DOCUSATE COMBO (SENNA PLUS) TABLET (UD) PO PRN (22:00)
[2019-08-20 09:43] VITALS: BP 135/79; PULSE 67; TEMP 98
--- NOTE | 2019-08-20 11:20 | DS ---
Physical Exam-TEXTILE SCREEN PRINTER Vital Signs: Vital Signs Temperature 98.0 F 08/20/19 09:42 Pulse Rate 67 08/20/19 09:42 Respiratory Rate 20 08/20/19 09:42 Blood Pressure 135/79 08/20/19 09:42 O2 Sat by Pulse Oximetry (%) Constitutional: Yes: Well Nourished Eyes: Yes: WNL HENT: Yes: WNL Neck: Yes: WNL Cardiovascular: Yes: WNL Respiratory: Yes: WNL Gastrointestinal: Yes: WNL Renal/: Yes: WNL ....Post : Yes: Uterus firm, Uterus non-tender, Moderate lochia rubra Breast(s): Yes: WNL (breast not engorged) Musculoskeletal: Yes: WNL Extremities: Yes: WNL Edema: No Integumentary: Yes: WNL Neurological: Yes: WNL ...Motor Strength: WNL Psychiatric: Yes: WNL Labs: CBC, BMP 08/19/19 08:12 08/18/19 22:00 Laboratory Tests 08/18/19 08/18/19 08/18/19 22:00 22:00 22:00 Syphilis Serology Non-reactive COVID-19 (LUIS MANUEL) Not detected HIV Ag/Ab Combo Qual Negative Delivery - Delivery Vaginal Delivery: V-John Type of Anesthesia: None Episiotomy/Laceration: None EBL (cc): 200 Delivery, Single - Stages of Labor Date 1st Stage Initiatied: 08/18/19 Time 1st Stage Initiated: 20:00 Date 2nd Stage Initiated: 08/18/19 Time 2nd Stage Initiated: 22:40 Date of Delivery: 08/18/19 Time of Delivery: 22:58 Time Placenta Delivered: 23:05 Placenta: Yes: Spontaneous - Condition of Electric Motorman/Dieing Out Machine Operator Present: No Infant Gender: Male Weight: 6 lb 5 oz Position: Right, OA Total Hours ROM (Hrs/Mins): 55MIN - 1 Minute Total Score: 9 5 Minutes Total Score: 9 - Feeding Plan Initial Plan: Elected not to breastfeed exclusively throughout hospitalization Remarks - Remarks Remarks: post stable discharge today Discharge Summary Problems reviewed: Yes Reason For Visit: LABOR Current Active Problems with 38 completed weeks gestation (Acute) , delivered, current hospitalization (Acute) Condition: Stable - Instructions Diet, Activity, Other Instructions: Return to regular diet and activity as tolerated. Follow up in 3-4 weeks at health center. Call MD with any questions or concerns Referrals: Arley Saurez MD [Staff Physician] - Disposition: HOME - Home Medications Comprehensive Discharge Medication List: Ambulatory Orders Acetaminophen [Tylenol .Regular Strength -] 650 mg PO Q4H PRN tablet 08/20/19 Ibuprofen [Motrin -] 200 mg PO Q6H PRN tablet 08/20/19 2/Iron/Folic Acid/Om3 [Complete Dha] 1 each PO DAILY #30 combo..pkg 08/20/19
== END 2019-08-20 13:46 | disposition home or self-care (01) | DRG 560 ==
LOC: JLDR 21:20 → J3W 08-19 01:20
PROVIDERS: ADMIT Student in an Organized Health Care Education/Training Program; ATTEND Student in an Organized Health Care Education/Training Program
PROC: 10E0XZZ Delivery of Products of Conception, External Approach (ICD-10-PCS; principal; 2019-08-19)
DX: O80 Encounter for full-term uncomplicated delivery (principal); Z3A.38 38 weeks gestation of pregnancy; Z37.0 Single live birth
CPT/HCPCS: 36415; 59409; 80048; 80307; 85025; 85610; 85730; 86780; 86850; 86900; 86901; 87389; U0003

== ENCOUNTER → 2024-10-15 | Day surgery (SDC) | payer OTHER | END | disposition home or self-care (01) | LOC: JMAMMO-SUR 09:30 | PROVIDERS: ATTEND Midwife | PROC: 0H9T3ZX Drainage of Right Breast, Percutaneous Approach, Diagnostic (ICD-10-PCS; principal; 2024-10-15) | DX: D24.1 Benign neoplasm of right breast (principal) | CPT/HCPCS: 19083; 76942-TC; 77065-TC; 87899; 88305-TC; A4648 ==